=== PATIENT | female | born 1980 | race African-American/Black ===

== ENCOUNTER 2021-04-17 14:18 | Emergency (ER) | payer OTHER ==
[~2021-04-17] VITALS: Ht 172.7 cm; Wt 90.9 kg
[2021-04-17 15:28] LABS: BASOPHILS % (AUTO) 0.7 % (0.0-2.0); EOSINOPHILS % (AUTO) 0.1 % (1.0-6.0); HEMATOCRIT 39.9 % (36-46); HEMOGLOBIN 13.6 g/dL (12.0-16.0); LYMPHOCYTES # (AUTO) 0.8 K/uL (1.0-4.8); LYMPHOCYTES % (AUTO) 10.9 % (22.0-44.0); MEAN CORPUSCULAR HEMOGLOBIN 29.6 pg (26.0-34.0); MEAN CORPUSCULAR VOLUME 87 fL (80-100); MONOCYTES # (AUTO) 0.4 K/uL (0.1-1.0); MONOCYTES % (AUTO) 5.6 % (2.0-9.0); NEUTROPHILS # (AUTO) 6.2 K/uL (1.8-7.7); NEUTROPHILS % (AUTO) 82.7 % (40.0-70.0); PLATELET COUNT (AUTO) 256 K/uL (150-450); RED BLOOD CELL COUNT(AUTO) 4.59 MIL/uL (4.00-5.20); RED CELL DISTRIBUTION WIDTH 12.8 % (11.5-14.5)
[2021-04-17 15:36] LABS: ANION GAP 12 mmol/L (8-16); CALCIUM, TOTAL 8.8 mg/dL (8.8-10.5); CARBON DIOXIDE 27 mmol/L (22-29); CHLORIDE 102 mmol/L (98-107); CREATININE 0.65 mg/dL (0.60-1.30); GLOMERULAR FILTR. RATE CALC > 60 mL/min (>60); GLUCOSE,RANDOM 105 mg/dL (70-110); POTASSIUM 3.5 mmol/L (3.5-5.1); SODIUM SERUM 141 mmol/L (136-145); UREA NITROGEN, BLOOD 5 mg/dL (7-18)
[2021-04-17 15:51] LABS: ALANINE AMINOTRANSFERASE 30 U/L (12-78); ALBUMIN 4.2 g/dL (3.4-5.0); ALKALINE PHOSPHATASE 89 U/L (46-116); ASPARTATE AMINOTRANSFERASE 20 U/L (15-37); BILIRUBIN,TOTAL 0.5 mg/dL (0.1-1.0); FREE T4 (FREE THYROXINE) 1.45 ng/dL (0.76-1.46); HCG,QUANTITATIVE < 1 mIU/mL (0-6); THYROID STIMULATING HORMONE 1.09 uIU/mL (0.36-3.74); TOTAL PROTEIN, SERUM 7.9 g/dL (6.4-8.2)
[2021-04-17 15:52] LABS: COVID AG,FIA SOURCE NASOPHARYNGEAL
[2021-04-17 19:54] LABS: APPEARANCE,URINE CLEAR (CLEAR); BILIRUBIN,URINE NEGATIVE (NEGATIVE); GLUCOSE, URINE (UA) NEGATIVE (NEGATIVE); KETONES,URINE 15 mg/dL (NEGATIVE); LEUKOCYTE ESTERASE ,URINE NEGATIVE (NEGATIVE); NITRATE,URINE NEGATIVE (NEGATIVE); OCCULT BLOOD,URINE SMALL (NEGATIVE); PROTEIN,URINE NEGATIVE (NEGATIVE); UROBILINOGEN,URINE 0.2 mg/dL (<=1.0)
[2021-04-17 19:58] LABS: AMPHET/METH SCREEN,URINE NEGATIVE (NEGATIVE); BARBITURATE SCREEN, URINE NEGATIVE (NEGATIVE); BENZODIAZEPINES SCREEN,URINE NEGATIVE (NEGATIVE); CANNABINOID SCREEN,URINE POSITIVE (NEGATIVE); COCAINE SCREEN,URINE NEGATIVE (NEGATIVE); METHADONE SCREEN, URINE NEGATIVE (NEGATIVE); OPIATE SCREEN,URINE NEGATIVE (NEGATIVE)
[2021-04-17 20:31] LABS: PHENCYCLIDINE SCREEN,URINE NEGATIVE (NEGATIVE)
[2021-04-17 20:42] LABS: SQUAMOUS EPITHELIAL CELL,UR Rare /LPF (None Seen)
[2021-04-17 20:43] LABS: BACTERIA,URINE None Seen /HPF (None Seen); RBC,URINE 0-2 /HPF (0-2); WBC,URINE 0-2 /HPF (0-5)
[2021-04-17 21:22] VITALS: BP 127/74
== END 2021-04-17 21:44 | disposition home or self-care (01) ==
LOC: EMS 14:21
DX: F20.9 Schizophrenia, unspecified (principal); Z20.822 Contact with and (suspected) exposure to COVID-19
CPT/HCPCS: 36415; 70450; 80053; 80307; 81001; 84439; 84443; 84702; 85025; 87426; 99285; G0480; 51701

== ENCOUNTER 2021-04-18 11:28 | Inpatient (IN) | payer MEDICAID ==
[~2021-04-18] VITALS: Ht 162.6 cm; Wt 88.0 kg
[2021-04-18] MEDS ORDERED: HALOPERIDOL 5 MG TABLET PO PRN (13:45)
[2021-04-18] MEDS ORDERED: ZOLPIDEM TARTRATE 10 MG TABLET PO PRN (13:45)
[2021-04-18] MEDS ORDERED: PNEUMOCOCCAL VACCINE POLYVALENT 0.5 ML VIAL [PPSV23] IM. ONE (14:00)
[2021-04-18] MEDS ORDERED: INFLUENZA VIRUS VACCINE QVS 2021-22 (6MO+)/PF 60 MCG/0.5 ML SYRINGE IM. ONE (14:00)
[2021-04-18 14:38] VITALS: BP 146/89
[2021-04-18] MEDS: LORazepam 2 MG TABLET PO PRN ×2 (14:41→16:33)
[2021-04-18 16:17] VITALS: BP 142/84
[2021-04-19 01:52] VITALS: BP 125/75
[2021-04-19 07:27] LABS: BASOPHILS % (AUTO) 0.5 % (0.0-2.0); EOSINOPHILS % (AUTO) 0.5 % (1.0-6.0); HEMATOCRIT 39.1 % (36-46); HEMOGLOBIN 13.4 g/dL (12.0-16.0); LYMPHOCYTES # (AUTO) 1.3 K/uL (1.0-4.8); LYMPHOCYTES % (AUTO) 19.7 % (22.0-44.0); MEAN CORPUSCULAR HEMOGLOBIN 29.8 pg (26.0-34.0); MEAN CORPUSCULAR HGB CONC 34.3 G/dL (31.0-37.0); MEAN CORPUSCULAR VOLUME 87 fL (80-100); MONOCYTES # (AUTO) 0.6 K/uL (0.1-1.0); MONOCYTES % (AUTO) 9.2 % (2.0-9.0); NEUTROPHILS # (AUTO) 4.8 K/uL (1.8-7.7); NEUTROPHILS % (AUTO) 70.1 % (40.0-70.0); PLATELET COUNT (AUTO) 282 K/uL (150-450); RED CELL DISTRIBUTION WIDTH 12.7 % (11.5-14.5)
[2021-04-19 08:08] LABS: HEMOGLOBIN A1C 5.4 % (3.8-5.6)
[2021-04-19 08:09] LABS: ALANINE AMINOTRANSFERASE 34 U/L (12-78); ALBUMIN 4.2 g/dL (3.4-5.0); ALKALINE PHOSPHATASE 93 U/L (46-116); ANION GAP 14 mmol/L (8-16); ASPARTATE AMINOTRANSFERASE 19 U/L (15-37); BILIRUBIN,TOTAL 0.4 mg/dL (0.1-1.0); CALCIUM, TOTAL 9.1 mg/dL (8.8-10.5); CARBON DIOXIDE 25 mmol/L (22-29); CHLORIDE 105 mmol/L (98-107); CHOL/HDL RATIO 3.9 (3.9-5.7); CHOLESTEROL 156 mg/dL (131-200); CREATININE 0.75 mg/dL (0.60-1.30); FREE T4 (FREE THYROXINE) 1.38 ng/dL (0.76-1.46); GLOMERULAR FILTR. RATE CALC > 60 mL/min (>60); GLUCOSE,RANDOM 106 mg/dL (70-110); HCG,QUANTITATIVE < 1 mIU/mL (0-6); HDL CHOLESTEROL 40 mg/dL (40-60); LDL CHOL (CALC.) 94 mg/dL (0-130); POTASSIUM 3.6 mmol/L (3.5-5.1); SODIUM SERUM 144 mmol/L (136-145); THYROID STIMULATING HORMONE 2.06 uIU/mL (0.36-3.74); TOTAL PROTEIN, SERUM 7.9 g/dL (6.4-8.2); TRIGLYCERIDES 112 mg/dL (15-150); UREA NITROGEN, BLOOD 11 mg/dL (7-18)
[2021-04-19 08:18] VITALS: BP 133/81
[2021-04-19] MEDS ORDERED: DiphenhydrAMINE HCL 50 MG/ML VIAL IM ONE (12:30)
[2021-04-19] MEDS ORDERED: HALOPERIDOL LACTATE 5 MG/ML VIAL IM ONE (12:30)
[2021-04-19] MEDS ORDERED: LORazepam 2 MG/ML VIAL IM ONE (12:30)
[2021-04-19] MEDS: OLANZapine 5 MG TABLET PO SCH ×2 (12:35→16:55)
[2021-04-19] MEDS ORDERED: NICOTINE 14 MG/24 HOUR PATCH TD PRN (13:30)
[2021-04-19] MEDS ORDERED: ONDANSETRON HCL 4 MG TABLET PO PRN (13:30)
[2021-04-19] MEDS ORDERED: MAGNESIUM HYDROXIDE SUSPENSION 30 ML UDCUP PO PRN (13:30)
[2021-04-19] MEDS ORDERED: ACETAMINOPHEN 325 MG TABLET PO PRN (13:30)
[2021-04-19] MEDS ORDERED: GuaiFENesin/D-METHORPHAN [SUGAR-FREE] 200-20MG/10 ML SYRUP UDCUP PO PRN (13:30)
[2021-04-19] MEDS ORDERED: MAG HYDROX/AL HYDROX/SIMETH ES 30 ML SUSPENSION UDCUP PO PRN (13:30)
[2021-04-19] MEDS ORDERED: PETROLATUM,WHITE 28 GM JELLY TP PRN (13:30)
[2021-04-19] MEDS ORDERED: ALBUTEROL SULFATE HFA 90 MCG/PUFF 8 GM INHALER IH PRN (13:30)
[2021-04-19] MEDS ORDERED: DOCUSATE SODIUM 100 MG CAPSULE PO PRN (13:30)
[2021-04-19] MEDS ORDERED: IBUPROFEN 400 MG TABLET PO PRN (13:30)
[2021-04-19] MEDS ORDERED: LOPERAMIDE HCL 2 MG CAPSULE PO PRN (13:30)
[2021-04-19] MEDS ORDERED: CloNIDine HCL 0.1 MG TABLET PO PRN (13:30)
[2021-04-20 00:21] VITALS: BP 128/76
[2021-04-20] MEDS: OLANZapine 5 MG TABLET PO SCH ×2 (08:30→16:58)
[2021-04-20] MEDS: LORazepam 2 MG TABLET PO PRN (08:30)
[2021-04-20] MEDS: TAMOXIFEN CITRATE 10 MG TABLET PO SCH (13:54)
[2021-04-20 16:16] VITALS: BP 127/60
[2021-04-21 00:29] VITALS: BP 118/71
[2021-04-21 07:54] LABS: APPEARANCE,URINE CLEAR (CLEAR); BILIRUBIN,URINE NEGATIVE (NEGATIVE); GLUCOSE, URINE (UA) NEGATIVE (NEGATIVE); KETONES,URINE NEGATIVE (NEGATIVE); LEUKOCYTE ESTERASE ,URINE NEGATIVE (NEGATIVE); NITRATE,URINE NEGATIVE (NEGATIVE); PH,URINE 7.5 (5.0-8.0); PROTEIN,URINE NEGATIVE (NEGATIVE); UROBILINOGEN,URINE 0.2 mg/dL (<=1.0)
[2021-04-21 08:14] LABS: AMPHET/METH SCREEN,URINE NEGATIVE (NEGATIVE); BARBITURATE SCREEN, URINE NEGATIVE (NEGATIVE); BENZODIAZEPINES SCREEN,URINE NEGATIVE (NEGATIVE); CANNABINOID SCREEN,URINE POSITIVE (NEGATIVE); COCAINE SCREEN,URINE NEGATIVE (NEGATIVE); METHADONE SCREEN, URINE NEGATIVE (NEGATIVE); OPIATE SCREEN,URINE NEGATIVE (NEGATIVE)
[2021-04-21 08:16] LABS: PHENCYCLIDINE SCREEN,URINE NEGATIVE (NEGATIVE)
[2021-04-21] MEDS: OLANZapine 5 MG TABLET PO SCH ×2 (08:31→16:17)
[2021-04-21 08:40] VITALS: BP 126/70
[2021-04-21] MEDS: TAMOXIFEN CITRATE 10 MG TABLET PO SCH ×2 (09:00→13:20)
[2021-04-21 09:10] LABS: OCCULT BLOOD,URINE SMALL (NEGATIVE)
[2021-04-21 09:11] LABS: BACTERIA,URINE None Seen /HPF (None Seen); WBC,URINE None Seen /HPF (0-5)
[2021-04-21] MEDS: LORazepam 2 MG TABLET PO PRN (16:18)
[2021-04-21 16:25] VITALS: BP 126/77
[2021-04-22 00:21] VITALS: BP 112/67
[2021-04-22 08:26] VITALS: BP 124/79
[2021-04-22] MEDS: TAMOXIFEN CITRATE 10 MG TABLET PO SCH (08:29)
[2021-04-22] MEDS: LORazepam 2 MG TABLET PO PRN ×2 (08:29→19:45)
[2021-04-22] MEDS: OLANZapine 5 MG TABLET PO SCH ×2 (08:29→16:02)
[2021-04-22] MEDS: ESCITALOPRAM OXALATE 10 MG TABLET PO SCH (10:33)
[2021-04-22 16:11] VITALS: BP 130/84
[2021-04-23 04:08] VITALS: BP 133/86
[2021-04-23 08:17] VITALS: BP 128/80
[2021-04-23] MEDS: OLANZapine 5 MG TABLET PO SCH ×2 (08:19→16:27)
[2021-04-23] MEDS: ESCITALOPRAM OXALATE 10 MG TABLET PO SCH (08:19)
[2021-04-23] MEDS: LORazepam 2 MG TABLET PO PRN (08:19)
[2021-04-23] MEDS: LEVOTHYROXINE SODIUM 50 MCG TABLET PO SCH (08:19)
[2021-04-23 08:30] LABS: COVID AG,FIA SOURCE NASOPHARYNGEAL
[2021-04-23] MEDS: TAMOXIFEN CITRATE 10 MG TABLET PO SCH (08:43)
[2021-04-23 16:09] VITALS: BP 121/76
[2021-04-24 00:26] VITALS: BP 114/66
[2021-04-24] MEDS: LEVOTHYROXINE SODIUM 50 MCG TABLET PO SCH (06:18)
[2021-04-24 08:06] VITALS: BP 148/83
[2021-04-24] MEDS: OLANZapine 5 MG TABLET PO SCH ×2 (08:21→16:19)
[2021-04-24] MEDS: ESCITALOPRAM OXALATE 10 MG TABLET PO SCH (08:22)
[2021-04-24] MEDS: LORazepam 2 MG TABLET PO PRN (08:22)
[2021-04-24] MEDS: TAMOXIFEN CITRATE 10 MG TABLET PO SCH (08:23)
[2021-04-24] MEDS ORDERED: OLAN5TAB94 PO (11:30)
[2021-04-24] MEDS ORDERED: ESCI-8 PO (11:30)
[2021-04-24 16:18] VITALS: BP 119/79
== END 2021-04-24 20:05 | disposition home or self-care (01) | DRG 751 ==
LOC: B2S 13:41 → B3A 04-19 13:45
PROVIDERS: ADMIT Psychiatry & Neurology Child & Adolescent Psychiatry; ATTEND Psychiatry & Neurology Child & Adolescent Psychiatry
DX: F29 Unspecified psychosis not due to a substance or known physiological condition (principal); F22 Delusional disorders; E66.9 Obesity, unspecified; K21.9 Gastro-esophageal reflux disease without esophagitis; F41.9 Anxiety disorder, unspecified; F12.10 Cannabis abuse, uncomplicated; R00.0 Tachycardia, unspecified; Z20.822 Contact with and (suspected) exposure to COVID-19; R53.83 Other fatigue; Z59.00 Homelessness unspecified; Z28.21 Immunization not carried out because of patient refusal; Z68.33 Body mass index [BMI] 33.0-33.9, adult
CPT/HCPCS: 80053; 80061; 80307; 81001; 83036; 84436; 84439; 84443; 84702; 85025; J1200; J1630; J2060; Q0162

== ENCOUNTER 2023-02-26 13:18 | Inpatient (IN) | payer MEDICAID, OTHER ==
[~2023-02-26] VITALS: Ht 165.1 cm; Wt 72.6 kg
[~2023-02-26 13:18] MED LIST: ESCI-8 PO; OLAN5TAB94 PO
[2023-02-26 14:47] LABS: BASOPHILS % (AUTO) 0.7 % (0.0-2.0); EOSINOPHILS % (AUTO) 0.5 % (1.0-6.0); HEMATOCRIT 42.1 % (36-46); HEMOGLOBIN 13.9 g/dL (12.0-16.0); LYMPHOCYTES # (AUTO) 1.3 K/uL (1.0-4.8); LYMPHOCYTES % (AUTO) 13.6 % (22.0-44.0); MEAN CORPUSCULAR HEMOGLOBIN 29.7 pg (26.0-34.0); MEAN CORPUSCULAR VOLUME 90 fL (80-100); MONOCYTES # (AUTO) 0.5 K/uL (0.1-1.0); MONOCYTES % (AUTO) 5.1 % (2.0-9.0); NEUTROPHILS # (AUTO) 7.4 K/uL (1.8-7.7); NEUTROPHILS % (AUTO) 80.1 % (40.0-70.0); PLATELET COUNT (AUTO) 259 K/uL (150-450); RED BLOOD CELL COUNT(AUTO) 4.69 MIL/uL (4.00-5.20); RED CELL DISTRIBUTION WIDTH 13.2 % (11.5-14.5)
[2023-02-26 14:53] LABS: COVID AG,FIA SOURCE NASAL SWAB
[2023-02-26 14:54] LABS: ANION GAP 16 mmol/L (8-16); CALCIUM, TOTAL 8.8 mg/dL (8.8-10.5); CARBON DIOXIDE 22 mmol/L (22-29); CHLORIDE 104 mmol/L (98-107); CREATININE 0.81 mg/dL (0.60-1.30); GLOMERULAR FILTR. RATE CALC > 60 mL/min (>60); GLUCOSE,RANDOM 106 mg/dL (70-110); POTASSIUM 3.4 mmol/L (3.5-5.1); SODIUM SERUM 142 mmol/L (136-145)
[2023-02-26 15:00] LABS: ALANINE AMINOTRANSFERASE 13 U/L (12-78); ALBUMIN 3.9 g/dL (3.4-5.0); ALKALINE PHOSPHATASE 61 U/L (46-116); ASPARTATE AMINOTRANSFERASE 28 U/L (15-37); BILIRUBIN,TOTAL 0.3 mg/dL (0.1-1.0); TOTAL PROTEIN, SERUM 7.3 g/dL (6.4-8.2)
[2023-02-28] MEDS: ZOLPIDEM TARTRATE 10 MG TABLET PO PRN (03:36)
[2023-02-28] MEDS ORDERED: LORazepam 2 MG/ML VIAL IM ONE (08:15)
[2023-02-28] MEDS ORDERED: HALOPERIDOL LACTATE 5 MG/ML VIAL IM ONE (08:15)
[2023-02-28] MEDS ORDERED: DiphenhydrAMINE HCL 50 MG/ML VIAL IM ONE (08:15)
[2023-02-28 16:06] VITALS: BP 123/81; PULSE 91; RESP 18; TEMP 98.6; O2SAT 98
[2023-03-01 00:30] VITALS: BP 149/99; PULSE 101; RESP 18; TEMP 98; O2SAT 97
[2023-03-01] MEDS: ZOLPIDEM TARTRATE 10 MG TABLET PO PRN (00:32)
[2023-03-01] MEDS: LORazepam 2 MG TABLET PO PRN ×2 (00:33→08:31)
[2023-03-01] MEDS ORDERED: BENZOCAINE/MENTHOL LOZENGE PO PRN (06:00)
[2023-03-01] MEDS ORDERED: DOCUSATE SODIUM 100 MG CAPSULE PO PRN (06:00)
[2023-03-01] MEDS ORDERED: ONDANSETRON HCL 4 MG TABLET PO PRN (06:00)
[2023-03-01] MEDS ORDERED: MAG HYDROX/AL HYDROX/SIMETH ES 30 ML SUSPENSION UDCUP PO PRN (06:00)
[2023-03-01] MEDS ORDERED: ALBUTEROL SULFATE HFA 90 MCG/PUFF 8 GM INHALER IH PRN (06:00)
[2023-03-01] MEDS ORDERED: POTASSIUM CHLORIDE 20 MEQ ER TABLET PO ONE (06:00)
[2023-03-01] MEDS ORDERED: LOPERAMIDE HCL 2 MG CAPSULE PO PRN (06:00)
[2023-03-01] MEDS ORDERED: PETROLATUM,WHITE 28 GM JELLY TP PRN (06:00)
[2023-03-01] MEDS ORDERED: CloNIDine HCL 0.1 MG TABLET PO PRN (06:00)
[2023-03-01] MEDS ORDERED: MAGNESIUM HYDROXIDE SUSPENSION 30 ML UDCUP PO PRN (06:00)
[2023-03-01] MEDS ORDERED: BACITRACIN 28 GM OINTMENT TP PRN (06:00)
[2023-03-01] MEDS ORDERED: ACETAMINOPHEN 325 MG TABLET PO PRN (06:00)
[2023-03-01] MEDS ORDERED: OMEPRAZOLE 20 MG CAPSULE PO PRN (06:00)
[2023-03-01] MEDS: HALOPERIDOL 5 MG TABLET PO PRN (08:31)
[2023-03-01 08:33] VITALS: BP 163/95; PULSE 87; RESP 16; TEMP 98.2; O2SAT 97
[2023-03-01] MEDS ORDERED: SERTRALINE HCL 100 MG TABLET PO SCH (12:00)
[2023-03-01] MEDS ORDERED: HYDROCORTISONE 1% 30 GM CREAM TP PRN (17:45)
[2023-03-01 20:18] VITALS: BP 107/69; PULSE 86; RESP 17; TEMP 97.6; O2SAT 97
[2023-03-01] MEDS: TraZODone HCL 50 MG TABLET PO SCH (21:07)
[2023-03-02 02:53] VITALS: BP 128/86; PULSE 97; RESP 18; TEMP 98.3; O2SAT 97
[2023-03-02] MEDS: ZOLPIDEM TARTRATE 10 MG TABLET PO PRN (02:53)
[2023-03-02] MEDS: IBUPROFEN 600 MG TABLET PO PRN ×2 (02:54→18:06)
[2023-03-02] MEDS: LORazepam 2 MG TABLET PO PRN (08:19)
[2023-03-02] MEDS: HALOPERIDOL 5 MG TABLET PO PRN (08:19)
[2023-03-02 08:35] VITALS: BP 147/83; PULSE 99; RESP 16; TEMP 98.6; O2SAT 95
[2023-03-02 08:51] LABS: CHOL/HDL RATIO 3.4 (3.9-5.7); POTASSIUM 3.3 mmol/L (3.5-5.1); THYROID STIMULATING HORMONE 4.17 uIU/mL (0.36-3.74)
[2023-03-02 08:55] LABS: HEMOGLOBIN A1C 5.3 % (3.8-5.6)
[2023-03-02] MEDS: SERTRALINE HCL 100 MG TABLET PO SCH (16:31)
[2023-03-02 18:06] VITALS: RESP 18
[2023-03-02 19:06] VITALS: RESP 18
[2023-03-02] MEDS: TraZODone HCL 50 MG TABLET PO SCH (20:19)
[2023-03-02 20:38] VITALS: BP 107/66; PULSE 86; RESP 17; TEMP 98.5; O2SAT 97
[2023-03-02] MEDS ORDERED: TraZODone HCL 50 MG TABLET PO SCH (21:00)
[2023-03-02] MEDS ORDERED: GABAPENTIN 300 MG CAPSULE PO SCH (21:00)
[2023-03-03] MEDS: LORazepam 2 MG TABLET PO PRN (08:30)
[2023-03-03] MEDS: HALOPERIDOL 5 MG TABLET PO PRN (08:30)
[2023-03-03] MEDS: SERTRALINE HCL 100 MG TABLET PO SCH (08:30)
[2023-03-03 08:39] VITALS: BP 134/70; PULSE 90; RESP 18; TEMP 98.1; O2SAT 98
[2023-03-03] MEDS: IBUPROFEN 600 MG TABLET PO PRN (09:08)
[2023-03-03] MEDS ORDERED: GABA-1181 PO (12:57)
[2023-03-03] MEDS ORDERED: SERT-162 PO (12:58)
[2023-03-03] MEDS ORDERED: TRAZ-252 PO (12:58)
== END 2023-03-03 16:11 | disposition home or self-care (01) | DRG 750 ==
LOC: EMS 13:18 → B3A 02-28 11:55
PROVIDERS: ADMIT Psychiatry & Neurology Psychiatry; ATTEND Psychiatry & Neurology Psychiatry
DX: F25.9 Schizoaffective disorder, unspecified (principal); R45.851 Suicidal ideations; F41.9 Anxiety disorder, unspecified; G47.00 Insomnia, unspecified; I10 Essential (primary) hypertension; K59.00 Constipation, unspecified; M79.7 Fibromyalgia; F32.A Depression, unspecified; K21.9 Gastro-esophageal reflux disease without esophagitis; F17.210 Nicotine dependence, cigarettes, uncomplicated; F12.90 Cannabis use, unspecified, uncomplicated; Z85.3 Personal history of malignant neoplasm of breast; Z79.899 Other long term (current) drug therapy
CPT/HCPCS: 80053; 80061; 83036; 84132; 84443; 85025; 99285; G0480

== ENCOUNTER 2023-03-04 21:41 | Emergency (ER) | payer MEDICAID, OTHER ==
[~2023-03-04] VITALS: Ht 165.1 cm; Wt 77.3 kg
[~2023-03-04 21:41] MED LIST changes: -ESCI-8 PO; +GABA-1181 PO; -OLAN5TAB94 PO; +SERT-162 PO; +TRAZ-252 PO
[2023-03-05] MEDS ORDERED: HALOPERIDOL 5 MG TABLET PO ONE (04:00)
[2023-03-05] MEDS ORDERED: LORazepam 1 MG TABLET PO ONE (04:00)
[2023-03-05 04:40] VITALS: BP 138/88; PULSE 92; RESP 20; TEMP 98.6
== END 2023-03-05 05:10 | disposition home or self-care (01) ==
LOC: EMS 21:41
DX: F20.9 Schizophrenia, unspecified (principal); F41.9 Anxiety disorder, unspecified; F32.A Depression, unspecified; M79.7 Fibromyalgia; F12.90 Cannabis use, unspecified, uncomplicated; Z98.890 Other specified postprocedural states
CPT/HCPCS: 99284; Z7502; Z7610

== ENCOUNTER 2023-03-07 12:52 | Inpatient (IN) | payer MEDICAID, OTHER ==
[~2023-03-07] VITALS: Ht 165.1 cm; Wt 84.1 kg
[2023-03-07 13:50] LABS: BASOPHILS % (AUTO) 0.5 % (0.0-2.0); EOSINOPHILS % (AUTO) 1.7 % (1.0-6.0); HEMATOCRIT 39.3 % (36-46); HEMOGLOBIN 12.5 g/dL (12.0-16.0); LYMPHOCYTES # (AUTO) 1.8 K/uL (1.0-4.8); LYMPHOCYTES % (AUTO) 27.1 % (22.0-44.0); MEAN CORPUSCULAR HEMOGLOBIN 28.9 pg (26.0-34.0); MEAN CORPUSCULAR HGB CONC 31.9 G/dL (31.0-37.0); MEAN CORPUSCULAR VOLUME 91 fL (80-100); MONOCYTES # (AUTO) 0.4 K/uL (0.1-1.0); MONOCYTES % (AUTO) 6.4 % (2.0-9.0); NEUTROPHILS # (AUTO) 4.3 K/uL (1.8-7.7); NEUTROPHILS % (AUTO) 64.3 % (40.0-70.0); PLATELET COUNT (AUTO) 185 K/uL (150-450); RED BLOOD CELL COUNT(AUTO) 4.33 MIL/uL (4.00-5.20); RED CELL DISTRIBUTION WIDTH 12.8 % (11.5-14.5); WHITE BLOOD COUNT (AUTO) 6.7 K/uL (4.5-11.0)
[2023-03-07 13:58] LABS: ANION GAP 8 mmol/L (8-16); CALCIUM, TOTAL 8.8 mg/dL (8.8-10.5); CARBON DIOXIDE 29 mmol/L (22-29); CHLORIDE 105 mmol/L (98-107); CREATININE 0.62 mg/dL (0.60-1.30); GLOMERULAR FILTR. RATE CALC > 60 mL/min (>60); GLUCOSE,RANDOM 83 mg/dL (70-110); POTASSIUM 3.4 mmol/L (3.5-5.1); SODIUM SERUM 142 mmol/L (136-145); UREA NITROGEN, BLOOD 5 mg/dL (7-18)
[2023-03-07 14:04] LABS: ALANINE AMINOTRANSFERASE 35 U/L (12-78); ALBUMIN 3.6 g/dL (3.4-5.0); ALKALINE PHOSPHATASE 54 U/L (46-116); ASPARTATE AMINOTRANSFERASE 42 U/L (15-37); BILIRUBIN,TOTAL 0.3 mg/dL (0.1-1.0); TOTAL PROTEIN, SERUM 6.5 g/dL (6.4-8.2)
[2023-03-07 14:06] LABS: ALCOHOL, BLOOD (SERUM) < 3 mg/dL (0-10)
[2023-03-07 15:13] LABS: ALCOHOL, URINE DRUG SCREEN NEGATIVE (NEGATIVE); AMPHET/METH SCREEN,URINE NEGATIVE (NEGATIVE); BARBITURATE SCREEN, URINE NEGATIVE (NEGATIVE); BENZODIAZEPINES SCREEN,URINE NEGATIVE (NEGATIVE); CANNABINOID SCREEN,URINE POSITIVE (NEGATIVE); COCAINE SCREEN,URINE NEGATIVE (NEGATIVE); METHADONE SCREEN, URINE NEGATIVE (NEGATIVE); OPIATE SCREEN,URINE NEGATIVE (NEGATIVE); PHENCYCLIDINE SCREEN,URINE NEGATIVE (NEGATIVE)
[2023-03-07] MEDS ORDERED: LORazepam 2 MG/ML VIAL IM ONE (15:15)
[2023-03-07] MEDS ORDERED: DiphenhydrAMINE HCL 50 MG/ML VIAL IM ONE (15:15)
[2023-03-07] MEDS ORDERED: HALOPERIDOL LACTATE 5 MG/ML VIAL IM ONE (15:15)
[2023-03-07] MEDS ORDERED: HALOPERIDOL 5 MG TABLET PO PRN (16:15)
[2023-03-07 18:56] LABS: COVID AG,FIA SOURCE NASOPHARYNGEAL
[2023-03-07 19:25] LABS: SARS-COV2 (COVID) ANTIGEN,FIA Negative (Negative)
[2023-03-07] MEDS ORDERED: LOPERAMIDE HCL 2 MG CAPSULE PO PRN (20:45)
[2023-03-07] MEDS ORDERED: BACITRACIN 28 GM OINTMENT TP PRN (20:45)
[2023-03-07] MEDS ORDERED: CloNIDine HCL 0.1 MG TABLET PO PRN (20:45)
[2023-03-07] MEDS ORDERED: ALBUTEROL SULFATE HFA 90 MCG/PUFF 8 GM INHALER IH PRN (20:45)
[2023-03-07] MEDS ORDERED: MAG HYDROX/AL HYDROX/SIMETH ES 30 ML SUSPENSION UDCUP PO PRN (20:45)
[2023-03-07] MEDS ORDERED: POTASSIUM CHLORIDE 20 MEQ ER TABLET PO ONE (20:45)
[2023-03-07] MEDS ORDERED: PETROLATUM,WHITE 28 GM JELLY TP PRN (20:45)
[2023-03-07] MEDS ORDERED: MAGNESIUM HYDROXIDE SUSPENSION 30 ML UDCUP PO PRN (20:45)
[2023-03-07] MEDS ORDERED: DOCUSATE SODIUM 100 MG CAPSULE PO PRN (20:45)
[2023-03-07] MEDS ORDERED: BENZOCAINE/MENTHOL LOZENGE PO PRN (20:45)
[2023-03-07 22:30] VITALS: BP 109/60; PULSE 80; RESP 18; TEMP 97.4; O2SAT 99
[2023-03-07] MEDS ORDERED: PNEUMOCOCCAL VACCINE POLYVALENT 0.5 ML SYRINGE [PPSV23] IM. ONE (23:45)
[2023-03-08] VITALS (7 sets, daily range): BP systolic 108–142; BP diastolic 64–88; PULSE 75–92; RESP 18; TEMP 97.4–97.8; O2SAT 97–98
[2023-03-08] MEDS: LORazepam 2 MG TABLET PO PRN ×3 (03:08→21:21)
[2023-03-08] MEDS: IBUPROFEN 600 MG TABLET PO PRN (11:16)
[2023-03-08] MEDS: DIVALPROEX SODIUM 500 MG DR TABLET PO SCH (16:20)
[2023-03-08] MEDS: LITHIUM CARBONATE 300 MG CAPSULE PO SCH (16:21)
[2023-03-08] MEDS: RisperiDONE 2 MG TABLET PO SCH (16:23)
[2023-03-08] MEDS: ZOLPIDEM TARTRATE 10 MG TABLET PO PRN (21:54)
[2023-03-09 06:56] LABS: GLUCOMETER DEV NAME(LOC) POC.BV; POC SARS-COV2 AG, FIA NEGATIVE (NEGATIVE)
[2023-03-09 08:35] LABS: POTASSIUM 3.9 mmol/L (3.5-5.1)
[2023-03-09 08:43] VITALS: BP 124/77; PULSE 92; RESP 18; TEMP 97.5; O2SAT 96
[2023-03-09] MEDS: LITHIUM CARBONATE 300 MG CAPSULE PO SCH ×2 (08:59→16:43)
[2023-03-09] MEDS: RisperiDONE 2 MG TABLET PO SCH ×2 (08:59→16:43)
[2023-03-09] MEDS: DIVALPROEX SODIUM 500 MG DR TABLET PO SCH ×2 (08:59→16:43)
[2023-03-09] MEDS: ONDANSETRON HCL 4 MG TABLET PO PRN (09:17)
[2023-03-09 12:24] VITALS: RESP 18; O2SAT 96
[2023-03-09] MEDS: IBUPROFEN 600 MG TABLET PO PRN (12:24)
[2023-03-09 13:24] VITALS: RESP 18
[2023-03-09 20:14] VITALS: BP 130/82; PULSE 83; RESP 18; TEMP 97.6; O2SAT 100
[2023-03-09] MEDS ORDERED: BRIMONIDINE TARTRATE 0.15% 5 ML OPHTHALMIC SOLUTION OU SCH (20:45)
[2023-03-09] MEDS: ZOLPIDEM TARTRATE 10 MG TABLET PO PRN (21:54)
[2023-03-10] VITALS (7 sets, daily range): BP systolic 127–134; BP diastolic 81–89; PULSE 85–107; RESP 18–19; TEMP 97.5–97.8; O2SAT 97–100
[2023-03-10] MEDS: IBUPROFEN 600 MG TABLET PO PRN ×2 (04:11→14:37)
[2023-03-10] MEDS: ONDANSETRON HCL 4 MG TABLET PO PRN (07:25)
[2023-03-10] MEDS: RisperiDONE 2 MG TABLET PO SCH ×2 (08:59→16:47)
[2023-03-10] MEDS: LITHIUM CARBONATE 300 MG CAPSULE PO SCH ×2 (08:59→16:46)
[2023-03-10] MEDS: DIVALPROEX SODIUM 500 MG DR TABLET PO SCH ×2 (08:59→16:46)
[2023-03-10] MEDS: BRIMONIDINE TARTRATE 0.15% 5 ML OPHTHALMIC SOLUTION OU SCH ×2 (09:02→16:47)
[2023-03-10] MEDS: TAMOXIFEN CITRATE 10 MG TABLET PO SCH (09:37)
[2023-03-10] MEDS: ACETAMINOPHEN 325 MG TABLET PO PRN (18:24)
[2023-03-10] MEDS: TraZODone HCL 50 MG TABLET PO SCH (20:42)
[2023-03-11 00:48] VITALS: BP 109/76; PULSE 100; RESP 18; TEMP 97.9; O2SAT 97
[2023-03-11] MEDS: ZOLPIDEM TARTRATE 10 MG TABLET PO PRN ×2 (00:52→21:23)
[2023-03-11 08:35] VITALS: BP 122/84; PULSE 97; RESP 18; TEMP 96.9; O2SAT 97
[2023-03-11] MEDS: DIVALPROEX SODIUM 500 MG DR TABLET PO SCH ×2 (08:49→17:19)
[2023-03-11] MEDS: LITHIUM CARBONATE 300 MG CAPSULE PO SCH ×2 (08:49→17:19)
[2023-03-11] MEDS: RisperiDONE 2 MG TABLET PO SCH ×2 (08:49→17:19)
[2023-03-11] MEDS: TAMOXIFEN CITRATE 10 MG TABLET PO SCH (08:50)
[2023-03-11] MEDS: BRIMONIDINE TARTRATE 0.15% 5 ML OPHTHALMIC SOLUTION OU SCH ×2 (08:55→17:20)
[2023-03-11] MEDS: OMEPRAZOLE 20 MG CAPSULE PO PRN (12:45)
[2023-03-11 20:24] VITALS: BP 133/74; PULSE 100; RESP 17; TEMP 97.9; O2SAT 98
[2023-03-11] MEDS: TraZODone HCL 50 MG TABLET PO SCH (21:23)
[2023-03-12 01:17] VITALS: BP 150/82; PULSE 119; RESP 18; TEMP 97.9; O2SAT 96
[2023-03-12] MEDS: IBUPROFEN 600 MG TABLET PO PRN (01:17)
[2023-03-12 02:17] VITALS: BP 135/70; PULSE 96; RESP 16; TEMP 97; O2SAT 95
[2023-03-12] MEDS: LITHIUM CARBONATE 300 MG CAPSULE PO SCH ×2 (08:26→17:21)
[2023-03-12] MEDS: DIVALPROEX SODIUM 500 MG DR TABLET PO SCH ×2 (08:26→17:24)
[2023-03-12] MEDS: TAMOXIFEN CITRATE 10 MG TABLET PO SCH (08:26)
[2023-03-12] MEDS: RisperiDONE 2 MG TABLET PO SCH ×2 (08:26→17:21)
[2023-03-12] MEDS: BRIMONIDINE TARTRATE 0.15% 5 ML OPHTHALMIC SOLUTION OU SCH ×2 (08:27→17:24)
[2023-03-12 13:42] VITALS: BP 144/87; PULSE 96; RESP 18; TEMP 97.8; O2SAT 98
[2023-03-12 20:36] VITALS: BP 117/84; PULSE 109; RESP 18; TEMP 97.7; O2SAT 97
[2023-03-12] MEDS: ZOLPIDEM TARTRATE 10 MG TABLET PO PRN (20:54)
[2023-03-12] MEDS: TraZODone HCL 50 MG TABLET PO SCH (20:54)
[2023-03-13 00:40] VITALS: BP 122/64; PULSE 99; RESP 18; TEMP 97.9; O2SAT 97
[2023-03-13] MEDS: IBUPROFEN 600 MG TABLET PO PRN (00:43)
[2023-03-13 08:35] VITALS: BP 136/82; PULSE 91; RESP 18; TEMP 97.9; O2SAT 98
[2023-03-13] MEDS: DIVALPROEX SODIUM 500 MG DR TABLET PO SCH ×2 (09:00→16:19)
[2023-03-13] MEDS: LITHIUM CARBONATE 300 MG CAPSULE PO SCH ×2 (09:03→16:15)
[2023-03-13] MEDS: RisperiDONE 2 MG TABLET PO SCH ×2 (09:03→16:15)
[2023-03-13] MEDS: TAMOXIFEN CITRATE 10 MG TABLET PO SCH (09:03)
[2023-03-13] MEDS: BRIMONIDINE TARTRATE 0.15% 5 ML OPHTHALMIC SOLUTION OU SCH ×2 (09:04→16:15)
[2023-03-13] MEDS: TraZODone HCL 50 MG TABLET PO SCH (20:14)
[2023-03-13 20:48] VITALS: BP 141/84; PULSE 97; RESP 17; TEMP 97.5; O2SAT 98
[2023-03-14] MEDS: LORazepam 2 MG TABLET PO PRN (00:19)
[2023-03-14] MEDS: ZOLPIDEM TARTRATE 10 MG TABLET PO PRN (00:19)
[2023-03-14] MEDS: BRIMONIDINE TARTRATE 0.15% 5 ML OPHTHALMIC SOLUTION OU SCH ×2 (08:59→16:52)
[2023-03-14] MEDS: LITHIUM CARBONATE 300 MG CAPSULE PO SCH ×3 (08:59→17:00)
[2023-03-14] MEDS: DIVALPROEX SODIUM 500 MG DR TABLET PO SCH ×2 (08:59→16:53)
[2023-03-14] MEDS: TAMOXIFEN CITRATE 10 MG TABLET PO SCH (09:00)
[2023-03-14] MEDS: RisperiDONE 2 MG TABLET PO SCH ×3 (09:00→17:00)
[2023-03-14 09:55] VITALS: BP 114/73; PULSE 100; RESP 20; TEMP 97.5; O2SAT 98
[2023-03-14 20:39] VITALS: BP 123/71; PULSE 91; RESP 19; TEMP 97.9; O2SAT 97
[2023-03-14] MEDS: TraZODone HCL 50 MG TABLET PO SCH (21:15)
[2023-03-15 08:35] VITALS: BP 121/88; PULSE 98; RESP 18; TEMP 97.3; O2SAT 94
[2023-03-15] MEDS: RisperiDONE 2 MG TABLET PO SCH ×2 (09:02→16:58)
[2023-03-15] MEDS: LITHIUM CARBONATE 300 MG CAPSULE PO SCH ×2 (09:03→16:58)
[2023-03-15] MEDS: DIVALPROEX SODIUM 500 MG DR TABLET PO SCH ×2 (09:03→16:58)
[2023-03-15] MEDS: TAMOXIFEN CITRATE 10 MG TABLET PO SCH (09:04)
[2023-03-15] MEDS: BRIMONIDINE TARTRATE 0.15% 5 ML OPHTHALMIC SOLUTION OU SCH ×2 (09:05→16:58)
[2023-03-15] MEDS: LORazepam 2 MG TABLET PO PRN (20:41)
[2023-03-15] MEDS: ZOLPIDEM TARTRATE 10 MG TABLET PO PRN (20:41)
[2023-03-15] MEDS: TraZODone HCL 50 MG TABLET PO SCH (20:41)
[2023-03-15 20:46] VITALS: BP 124/85; PULSE 96; RESP 18; TEMP 97.7; O2SAT 97
[2023-03-16 05:30] VITALS: BP 107/70; PULSE 88; RESP 18; TEMP 97.7; O2SAT 99
[2023-03-16] MEDS: IBUPROFEN 600 MG TABLET PO PRN (05:35)
[2023-03-16 08:29] VITALS: BP 124/72; PULSE 91; RESP 19; TEMP 98; O2SAT 98
[2023-03-16] MEDS: LITHIUM CARBONATE 300 MG CAPSULE PO SCH ×2 (09:24→16:23)
[2023-03-16] MEDS: DIVALPROEX SODIUM 500 MG DR TABLET PO SCH ×2 (09:24→16:23)
[2023-03-16] MEDS: TAMOXIFEN CITRATE 10 MG TABLET PO SCH (09:24)
[2023-03-16] MEDS: RisperiDONE 2 MG TABLET PO SCH ×2 (09:24→16:24)
[2023-03-16] MEDS: BRIMONIDINE TARTRATE 0.15% 5 ML OPHTHALMIC SOLUTION OU SCH ×2 (09:25→16:25)
[2023-03-16] MEDS: OMEPRAZOLE 20 MG CAPSULE PO PRN (13:49)
[2023-03-16] MEDS: TraZODone HCL 50 MG TABLET PO SCH (20:33)
[2023-03-16 20:34] VITALS: BP 126/67; PULSE 98; RESP 17; TEMP 98.2; O2SAT 100
[2023-03-16] MEDS: ZOLPIDEM TARTRATE 10 MG TABLET PO PRN (20:51)
[2023-03-17 03:54] VITALS: BP 127/70; PULSE 101; RESP 18; TEMP 97.7; O2SAT 97
[2023-03-17] MEDS: IBUPROFEN 600 MG TABLET PO PRN ×2 (03:56→11:17)
[2023-03-17] MEDS: DIVALPROEX SODIUM 500 MG DR TABLET PO SCH ×2 (08:20→16:22)
[2023-03-17] MEDS: TAMOXIFEN CITRATE 10 MG TABLET PO SCH (08:20)
[2023-03-17] MEDS: LITHIUM CARBONATE 300 MG CAPSULE PO SCH ×2 (08:20→16:22)
[2023-03-17] MEDS: RisperiDONE 2 MG TABLET PO SCH ×2 (08:20→16:22)
[2023-03-17] MEDS: BRIMONIDINE TARTRATE 0.15% 5 ML OPHTHALMIC SOLUTION OU SCH ×2 (08:23→16:23)
[2023-03-17 08:46] VITALS: BP 126/75; PULSE 90; RESP 17; TEMP 97.7; O2SAT 98
[2023-03-17 20:42] VITALS: BP 125/78; PULSE 95; RESP 18; TEMP 97.9; O2SAT 97
[2023-03-17] MEDS: TraZODone HCL 50 MG TABLET PO SCH (20:44)
[2023-03-17] MEDS: ZOLPIDEM TARTRATE 10 MG TABLET PO PRN (22:05)
[2023-03-18 08:23] VITALS: BP 121/66; PULSE 95; RESP 18; TEMP 98.2; O2SAT 96
[2023-03-18] MEDS: BRIMONIDINE TARTRATE 0.15% 5 ML OPHTHALMIC SOLUTION OU SCH ×2 (08:48→17:17)
[2023-03-18] MEDS: LITHIUM CARBONATE 300 MG CAPSULE PO SCH ×2 (08:49→17:16)
[2023-03-18] MEDS: RisperiDONE 2 MG TABLET PO SCH ×2 (08:49→17:16)
[2023-03-18] MEDS: DIVALPROEX SODIUM 500 MG DR TABLET PO SCH ×2 (08:49→17:16)
[2023-03-18] MEDS: TAMOXIFEN CITRATE 10 MG TABLET PO SCH (08:49)
[2023-03-18 17:48] VITALS: RESP 18; O2SAT 96
[2023-03-18] MEDS: IBUPROFEN 600 MG TABLET PO PRN (17:48)
[2023-03-18 18:48] VITALS: RESP 18; O2SAT 96
[2023-03-18] MEDS: TraZODone HCL 50 MG TABLET PO SCH (20:18)
[2023-03-18] MEDS: ZOLPIDEM TARTRATE 10 MG TABLET PO PRN (20:18)
[2023-03-18 22:20] VITALS: BP 123/73; PULSE 96; RESP 17; TEMP 97.6; O2SAT 95
[2023-03-19] MEDS: DIVALPROEX SODIUM 500 MG DR TABLET PO SCH ×2 (08:41→16:33)
[2023-03-19] MEDS: BRIMONIDINE TARTRATE 0.15% 5 ML OPHTHALMIC SOLUTION OU SCH ×2 (08:41→16:34)
[2023-03-19] MEDS: RisperiDONE 2 MG TABLET PO SCH ×2 (08:41→16:33)
[2023-03-19] MEDS: LITHIUM CARBONATE 300 MG CAPSULE PO SCH ×2 (08:41→16:33)
[2023-03-19 08:48] VITALS: BP 124/74; PULSE 100; RESP 18; TEMP 97.3; O2SAT 98
[2023-03-19] MEDS: TAMOXIFEN CITRATE 10 MG TABLET PO SCH (09:34)
[2023-03-19] MEDS: ZOLPIDEM TARTRATE 10 MG TABLET PO PRN (20:33)
[2023-03-19 20:34] VITALS: BP 132/76; PULSE 105; RESP 18; TEMP 97.7; O2SAT 96
[2023-03-19 20:36] VITALS: RESP 18
[2023-03-19] MEDS: IBUPROFEN 600 MG TABLET PO PRN (20:37)
[2023-03-19] MEDS: TraZODone HCL 50 MG TABLET PO SCH (20:38)
[2023-03-20] MEDS: DIVALPROEX SODIUM 500 MG DR TABLET PO SCH ×2 (09:10→16:22)
[2023-03-20] MEDS: TAMOXIFEN CITRATE 10 MG TABLET PO SCH (09:10)
[2023-03-20] MEDS: RisperiDONE 2 MG TABLET PO SCH ×2 (09:10→16:22)
[2023-03-20] MEDS: BRIMONIDINE TARTRATE 0.15% 5 ML OPHTHALMIC SOLUTION OU SCH ×2 (09:10→16:22)
[2023-03-20] MEDS: LITHIUM CARBONATE 300 MG CAPSULE PO SCH ×2 (09:10→16:22)
[2023-03-20 15:30] VITALS: BP 119/73; PULSE 100; RESP 18; TEMP 97.4; O2SAT 97
[2023-03-20] MEDS: ONDANSETRON HCL 4 MG TABLET PO PRN (16:28)
[2023-03-20 20:18] VITALS: BP 113/72; PULSE 95; RESP 18; TEMP 98; O2SAT 100
[2023-03-20] MEDS: TraZODone HCL 50 MG TABLET PO SCH (21:14)
[2023-03-20] MEDS: ACETAMINOPHEN 325 MG TABLET PO PRN (21:37)
[2023-03-21] MEDS: ZOLPIDEM TARTRATE 10 MG TABLET PO PRN ×2 (01:50→21:17)
[2023-03-21] MEDS: ONDANSETRON HCL 4 MG TABLET PO PRN ×2 (01:50→20:12)
[2023-03-21] MEDS: TAMOXIFEN CITRATE 10 MG TABLET PO SCH (08:36)
[2023-03-21] MEDS: RisperiDONE 2 MG TABLET PO SCH ×2 (08:36→17:03)
[2023-03-21] MEDS: DIVALPROEX SODIUM 500 MG DR TABLET PO SCH ×2 (08:36→17:03)
[2023-03-21] MEDS: LITHIUM CARBONATE 300 MG CAPSULE PO SCH ×2 (08:36→17:03)
[2023-03-21] MEDS: BRIMONIDINE TARTRATE 0.15% 5 ML OPHTHALMIC SOLUTION OU SCH ×2 (08:37→17:03)
[2023-03-21 08:38] VITALS: BP 124/74; PULSE 92; RESP 18; TEMP 97.6; O2SAT 96
[2023-03-21] MEDS: IBUPROFEN 600 MG TABLET PO PRN (12:52)
[2023-03-21] MEDS: TraZODone HCL 50 MG TABLET PO SCH (20:11)
[2023-03-21 20:46] VITALS: BP 111/61; PULSE 89; RESP 18; TEMP 98; O2SAT 97
[2023-03-22 08:31] VITALS: BP 112/71; PULSE 79; RESP 19; TEMP 98; O2SAT 97
[2023-03-22] MEDS: TAMOXIFEN CITRATE 10 MG TABLET PO SCH (08:59)
[2023-03-22] MEDS: LITHIUM CARBONATE 300 MG CAPSULE PO SCH ×2 (08:59→16:22)
[2023-03-22] MEDS: DIVALPROEX SODIUM 500 MG DR TABLET PO SCH ×2 (08:59→16:22)
[2023-03-22] MEDS: RisperiDONE 2 MG TABLET PO SCH ×2 (08:59→16:21)
[2023-03-22] MEDS: BRIMONIDINE TARTRATE 0.15% 5 ML OPHTHALMIC SOLUTION OU SCH ×2 (09:00→16:22)
[2023-03-22 20:37] VITALS: BP 123/70; PULSE 96; RESP 17; TEMP 99; O2SAT 98
[2023-03-22] MEDS: TraZODone HCL 50 MG TABLET PO SCH (20:37)
[2023-03-23 08:46] VITALS: BP 122/72; PULSE 99; RESP 17; TEMP 97.5; O2SAT 95
[2023-03-23] MEDS: RisperiDONE 2 MG TABLET PO SCH ×2 (09:27→16:18)
[2023-03-23] MEDS: LITHIUM CARBONATE 300 MG CAPSULE PO SCH ×2 (09:27→16:18)
[2023-03-23] MEDS: DIVALPROEX SODIUM 500 MG DR TABLET PO SCH ×2 (09:27→16:18)
[2023-03-23] MEDS: TAMOXIFEN CITRATE 10 MG TABLET PO SCH (09:27)
[2023-03-23] MEDS: BRIMONIDINE TARTRATE 0.15% 5 ML OPHTHALMIC SOLUTION OU SCH ×2 (09:28→16:18)
[2023-03-23 21:00] VITALS: BP 125/74; PULSE 86; RESP 17; TEMP 97.6
[2023-03-23] MEDS: TraZODone HCL 50 MG TABLET PO SCH (21:40)
[2023-03-24 08:24] VITALS: BP 127/77; PULSE 94; RESP 17; TEMP 97.6; O2SAT 97
[2023-03-24] MEDS: RisperiDONE 2 MG TABLET PO SCH ×2 (08:53→16:00)
[2023-03-24] MEDS: LITHIUM CARBONATE 300 MG CAPSULE PO SCH ×2 (08:53→16:00)
[2023-03-24] MEDS: DIVALPROEX SODIUM 500 MG DR TABLET PO SCH ×2 (08:53→16:00)
[2023-03-24] MEDS: TAMOXIFEN CITRATE 10 MG TABLET PO SCH (08:54)
[2023-03-24] MEDS: BRIMONIDINE TARTRATE 0.15% 5 ML OPHTHALMIC SOLUTION OU SCH ×2 (08:58→16:01)
[2023-03-24 16:57] LABS: GLUCOMETER DEV NAME(LOC) POC.BV; POC SARS-COV2 AG, FIA NEGATIVE (NEGATIVE)
[2023-03-24 20:41] VITALS: BP 115/70; PULSE 82; RESP 18; TEMP 97.7; O2SAT 97
[2023-03-24] MEDS: TraZODone HCL 50 MG TABLET PO SCH (21:00)
[2023-03-24] MEDS ORDERED: LITH300C3 PO (22:31)
[2023-03-24] MEDS ORDERED: RISP2TAB86 PO (22:31)
[2023-03-24] MEDS ORDERED: DIVA-112 PO (22:31)
[2023-03-25 07:57] LABS: LITHIUM 0.34 mmol/L (0.60-1.20)
[2023-03-25] MEDS ORDERED: DIVA-112 PO (08:17)
[2023-03-25] MEDS ORDERED: LITH300C3 PO (08:18)
[2023-03-25] MEDS ORDERED: RISP2TAB86 PO (08:19)
[2023-03-25] MEDS ORDERED: BRIM155OS OU (08:32)
[2023-03-25] MEDS ORDERED: TAMO10TA45 PO (08:33)
[2023-03-25] MEDS: BRIMONIDINE TARTRATE 0.15% 5 ML OPHTHALMIC SOLUTION OU SCH (08:41)
[2023-03-25] MEDS: LITHIUM CARBONATE 300 MG CAPSULE PO SCH (08:42)
[2023-03-25] MEDS: DIVALPROEX SODIUM 500 MG DR TABLET PO SCH (08:42)
[2023-03-25] MEDS: TAMOXIFEN CITRATE 10 MG TABLET PO SCH (08:42)
[2023-03-25] MEDS: RisperiDONE 2 MG TABLET PO SCH (08:42)
[2023-03-25 08:46] VITALS: BP 124/64; PULSE 95; RESP 16; TEMP 97.1; O2SAT 98
== END 2023-03-25 09:45 | disposition home or self-care (01) | DRG 750 ==
LOC: EMS 13:06 → B3A 18:26 → B2S 03-08 19:20
PROVIDERS: ADMIT Psychiatry & Neurology Psychiatry; ATTEND Psychiatry & Neurology Psychiatry
DX: F25.9 Schizoaffective disorder, unspecified (principal); E87.6 Hypokalemia; F41.9 Anxiety disorder, unspecified; K21.9 Gastro-esophageal reflux disease without esophagitis; Z20.822 Contact with and (suspected) exposure to COVID-19; M79.7 Fibromyalgia; G47.00 Insomnia, unspecified; I10 Essential (primary) hypertension; K59.00 Constipation, unspecified; F19.10 Other psychoactive substance abuse, uncomplicated; F31.9 Bipolar disorder, unspecified; Z85.3 Personal history of malignant neoplasm of breast; Z79.899 Other long term (current) drug therapy
CPT/HCPCS: 80053; 80164; 80178; 80307; 84132; 84295; 84703; 85025; 87081; 99285; G0480; J1200; J1630; J2060; Q0162